=== PATIENT | female | born 1950 | race Caucasian/White ===

== ENCOUNTER → 2019-01-30 | Outpatient (CLI) | payer OTHER ==
[~2019-01-30] MED LIST: AMBIEN 10 MG TA10 MG PO; AMITRIPTYLINE H25 M2 PO; ASPIRIN325 PO; BAYER CHEWABLE81 MG PO; BENICAR HCT 401 EACH PO; CARVEDILOL12.5 MG PO; COLACE100 MG PO; COLESTID1 GM PO; CRESTOR10 MG PO; ENOXAPARIN30 MG/0.1 INJECTION; FENOFIBRATE145 MG PO; GLUCOPHAGE500 MG PO; HYDROCODON-ACE1 EACH PO; HYDROCODONE-AP1 EAC6 PO; LEVOTHYROXIN0.137 M1 PO; METAMUCIL PAC1 UDPKT GT; MICARDIS40 MG PO; MIRALAX17 GM PO; MULTIVITAMINS PO; OMEPRAZOLE40 MG PO; OS-CAL 500+D C1 EACH; OXYCODONE HCL 55 MG PO; VITAMIN D32000 UNIT PO; XARELTO10 MG PO
== END ==
LOC: M.MRI 11:18
DX: M51.16 Intervertebral disc disorders with radiculopathy, lumbar region (principal); M47.26 Other spondylosis with radiculopathy, lumbar region; M48.061 Spinal stenosis, lumbar region without neurogenic claudication